=== PATIENT | male | born 1960 | race Caucasian/White ===

== ENCOUNTER → 2017-03-25 | Day surgery (SDC) | payer BC ==
[~2017-03-25] MED LIST: Lactated Ringers 1,000 ML IV SCH; Propofol 200 MG/20 ML SDV IV ONE
[2017-03-25 11:02] VITALS: BP 118/73
--- NOTE | 2017-03-25 12:54 | OR ---
DATE OF OPERATION: 03/25/2017 PREOPERATIVE DIAGNOSIS: SCREENING COLONOSCOPY. POSTOPERATIVE DIAGNOSIS: SCREENING COLONOSCOPY. SURGEON: Sabino Hendricks MD PROCEDURE: FULL-LENGTH COLONOSCOPY WITH SNARE POLYPECTOMY X1. 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 COMPLICATIONS: None. SPECIMEN: Tubular adenoma, sigmoid colon. FINDINGS: 1. Full-length colonoscopy. 2. Small tubular adenoma, sigmoid colon less than 0.5 cm. 3. Minimal to mild sigmoid diverticulosis. RECOMMENDATIONS: Follow up colonoscopy in 5 years. INDICATIONS: The patient was in for a physical. Has never had a screening colonoscopy. Nicole Diaz sent him for such. DESCRIPTION OF PROCEDURE: The patient was prepped and draped, placed in the left lateral decubitus position. A lubricated Olympus colonoscope was inserted and easily advanced to the cecum. Direct visualization of the ileocecal valve and appendiceal orifice was accomplished. The bowel prep was excellent. Upon withdrawal of the scope, the cecum, ascending, and transverse colon appeared completely benign. Throughout the descending colon, there were no abnormalities. The sigmoid colon has one small tubular adenoma less than 0.5 cm around 45 cm. It was removed with a small snare and suctioned into polyp trap #1. There were a few scattered diverticula in the mid to distal sigmoid colon, very mild in severity. No other signs of vascular abnormality, colitis, bleeding sites, or lesions were seen. The rectal vault was unremarkable. Retroflexion of the scope in the rectum showed no anal lesions. Air was then suctioned. The scope was removed without complication. ZAHRAA/PAULINA /[id number]
== END ==
LOC: CC.SDS 09:04
PROVIDERS: ATTEND Family Medicine
DX: Z12.11 Encounter for screening for malignant neoplasm of colon (principal); K51.40 Inflammatory polyps of colon without complications; K57.30 Diverticulosis of large intestine without perforation or abscess without bleeding; I10 Essential (primary) hypertension; E78.00 Pure hypercholesterolemia, unspecified; Z79.82 Long term (current) use of aspirin; Z79.899 Other long term (current) drug therapy; Z96.649 Presence of unspecified artificial hip joint
CPT/HCPCS: 45385; J2704; J7120

== ENCOUNTER 2020-11-30 12:40 | Emergency (ER) | payer BC ==
[2020-11-30 13:06] VITALS: BP 143/80; PULSE 77
--- NOTE | 2020-11-30 13:31 | EDM.PDOC ---
ED HPI GENERAL MEDICAL PROBLEM - General Chief Complaint: General Stated Complaint: foreign body in R) eye Time Seen by Provider: 11/30/20 13:14 Source of Information: Reports: Patient History Limitations: Reports: No Limitations - History of Present Illness INITIAL COMMENTS - FREE TEXT/NARRATIVE: This patient is a 59 year old male that presents to the ER. Patient reports that he was shaving galvanized metal yesterday. He was wearing his prescription eye glasses, but not appropriate protective eye wear. Patient reports he felt like he got something in his right eye yesterday. He reports his said she saw something in it. Patient reports no pain. Reports watery right eye, little blurry, but no loss. Onset Date: 11/29/20 Duration: Day(s): (1) Location: Reports: Other (right eye) Severity: Mild Improves with: Reports: None Worsens with: Reports: None Associated Symptoms: Reports: No Other Symptoms - Related Data Allergies Allergy/AdvReac Type Severity Reaction Status Date / Time latex Allergy Rash Verified 11/30/20 13:00 Home Meds: Home Meds Glucosamine/D3/Boswellia Gela [Osteo Bi-Flex Caplet] 1 tab PO DAILY 12/29/14 [History] Hydrochlorothiazide 50 mg PO DAILY 12/29/14 [History] Multivitamin [Multi-Vitamin Daily] 1 tab PO DAILY 12/29/14 [History] Ubidecarenone [Coq-10] 200 mg PO DAILY 12/29/14 [History] atenoloL [Tenormin] 50 mg PO BID 12/29/14 [History] Aspirin [Halfprin] 81 mg PO DAILY 03/24/17 [History] Lutein 20 mg PO DAILY 03/24/17 [History] lisinopriL [Lisinopril] 1 tab PO DAILY 11/30/20 [History] sitaGLIPtin Phos/Metformin HCl [Janumet Xr 50-500 mg Tablet] 1 tab PO DAILY 11/30/20 [History] Past Medical History Genitourinary History: Reports: Other (See Below) Other Genitourinary History: hx prostate ca 2019 Endocrine/Metabolic History: Reports: Other (See Below) Other Endocrine/Metabolic History: pre-diabetic Oncologic (Cancer) History: Reports: Prostate Other Oncologic History: hx prostate cancer 2019 - Infectious Disease History Infectious Disease History: Reports: Shingles - Past Surgical History HEENT Surgical History: Reports: Adenoidectomy, Tonsillectomy Other HEENT Surgeries/Procedures: ADENOIDS Social & Family History - Tobacco Use Tobacco Use Status *Q: Never Tobacco User - Caffeine Use Caffeine Use: Reports: Coffee - Recreational Drug Use Recreational Drug Use: No ED ROS GENERAL - Review of Systems Review Of Systems: See Below Constitutional: Reports: No Symptoms HEENT: Reports: Other (right eye FB sensation, watery, blurry vision, but no loss. ) Respiratory: Reports: No Symptoms Cardiovascular: Reports: No Symptoms GI/Abdominal: Reports: No Symptoms Skin: Reports: No Symptoms Neurological: Reports: No Symptoms Psychiatric: Reports: No Symptoms ED EXAM, GENERAL - Physical Exam Exam: See Below Exam Limited By: No Limitations General Appearance: Alert, WD/WN, No Apparent Distress Eye Exam: Right Eye: Foreign Body (very small FB, removed with q-tip. ), Bilateral Eye: EOMI, Normal Inspection, PERRL Respiratory/Chest: No Respiratory Distress, Lungs Clear, Normal Breath Sounds, No Accessory Muscle Use Cardiovascular: Normal Peripheral Pulses, Regular Rate, Rhythm, No Edema, No Gallop, No JVD, No Murmur, No Rub Neurological: Alert, Oriented Psychiatric: Normal Affect, Normal Mood Skin Exam: Warm, Dry, Intact, Normal Color, No Rash ED GENERAL MEDICAL PROCEDURES - Additional/Other Procedure(s) Other (Free Text) Procedure(s): Alcaine 2 gtts to right eye. Fluoroscene strip with NS applied to right eye. Explored with opthlmoscope. black light used. o corneal abrasions seen. Small FB seen central of eye in central pupil on cornea. Removed with q-tip without complications. Right eye then flushed with NS 100ml by RN. Erythromycin applied from eye box. Course - Vital Signs Last Recorded V/S: Last Vital Signs Temp 98.1 F 11/30/20 12:43 Pulse 77 11/30/20 12:43 Resp 18 11/30/20 12:43 BP 143/80 H 11/30/20 12:43 Pulse Ox 96 11/30/20 12:43 - Orders/Labs/Meds Orders: Active Orders 24 hr Category Date Time Status Visual Acuity [Vision Test] [RC] ASDIRECTED Care 11/30/20 13:31 Ordered Departure - Departure Time of Disposition: 13:27 Disposition: Home, Self-Care 01 Condition: Good Clinical Impression: Eye foreign body Qualifiers: Encounter type: initial encounter Laterality: right Qualified Code(s): T15.91XA - Foreign body on external eye, part unspecified, right eye, initial encounter - Discharge Information *PRESCRIPTION DRUG MONITORING PROGRAM REVIEWED*: Not Applicable *COPY OF PRESCRIPTION DRUG MONITORING REPORT IN PATIENT ADORE: Not Applicable Instructions: Eye Foreign Body, [id number] Referrals: Nicole Diaz PA-C [Primary Care Provider] - Forms: ED Department Discharge Additional Instructions: Followup with curriculum specialist by calling tomorrow to be seen Return to the ER for worsening of condition or any emergent concerns Erythromycin eye ointment 0.5% apply every 4 hours while awake for 7 days #1 tube Wear appropriate protective eye wear Sepsis Event Note (ED) - Evaluation Sepsis Screening Result: No Definite Risk - Focused Exam Vital Signs: Vital Signs Temp Pulse Resp BP Pulse Ox 11/30/20 12:43 98.1 F 77 18 143/80 H 96 - My Orders Last 24 Hours: My Active Orders 11/30/20 13:31 Visual Acuity [Vision Test] [RC] ASDIRECTED - Assessment/Plan Last 24 Hours: My Active Orders 11/30/20 13:31 Visual Acuity [Vision Test] [RC] ASDIRECTED Plan: PLEASE SEE RN NOTE FOR PFSH
[2020-11-30] MEDS ORDERED: Erythromycin Base 0.5% Ophth Oint 3.5 GM Tube EYEBOTH ONE (13:49)
== END 2020-11-30 13:41 | disposition home or self-care (01) ==
LOC: CC.ED 12:40
DX: T15.01XA Foreign body in cornea, right eye, initial encounter (principal); R73.03 Prediabetes; Z91.040 Latex allergy status; Z79.82 Long term (current) use of aspirin; Z79.84 Long term (current) use of oral hypoglycemic drugs; Z79.899 Other long term (current) drug therapy
CPT/HCPCS: 65220; 99283-25; A9270-GY

== ENCOUNTER 2023-04-23 19:24 | Emergency (ER) | payer BC ==
[2023-04-23 19:28] VITALS: BP 122/84; PULSE 95
== END 2023-04-23 20:20 | disposition home or self-care (01) ==
LOC: CC.ED 19:24
DX: S43.401A Unspecified sprain of right shoulder joint, initial encounter (principal); Z91.040 Latex allergy status; Z79.82 Long term (current) use of aspirin; Z79.899 Other long term (current) drug therapy; Z79.84 Long term (current) use of oral hypoglycemic drugs; W18.39XA Other fall on same level, initial encounter
CPT/HCPCS: 73030-RT; 99283

== ENCOUNTER → 2023-05-27 | Day surgery (SDC) | payer BC ==
[~2023-05-27] MED LIST changes: +Ketamine 200 MG/20 ML MDV ONE; -Lactated Ringers 1,000 ML IV SCH; -Propofol 200 MG/20 ML SDV IV ONE; +Propofol 200 MG/20 ML SDV ONE; +fentaNYL 50 MCG/ML SDV ONE
[2023-05-27] MEDS: Lactated Ringers 1,000 ML IV SCH (07:02)
[2023-05-27 09:08] VITALS: BP 134/85; PULSE 68
== END ==
LOC: CC.SDS 06:29
PROVIDERS: ATTEND Family Medicine
DX: Z12.11 Encounter for screening for malignant neoplasm of colon (principal); D12.5 Benign neoplasm of sigmoid colon; K57.30 Diverticulosis of large intestine without perforation or abscess without bleeding; I10 Essential (primary) hypertension; G89.29 Other chronic pain; M25.511 Pain in right shoulder; E78.00 Pure hypercholesterolemia, unspecified; E11.9 Type 2 diabetes mellitus without complications; Z79.82 Long term (current) use of aspirin; Z79.2 Long term (current) use of antibiotics; Z79.899 Other long term (current) drug therapy; Z79.84 Long term (current) use of oral hypoglycemic drugs
CPT/HCPCS: 00811; J2704; J3010; J3490; J7120